=== PATIENT | female | born 1990 | race Caucasian/White ===

== ENCOUNTER 2018-08-20 03:50 | Emergency (ER) | payer OTHER ==
[~2018-08-20] VITALS: Ht 162.6 cm; Wt 55.3 kg
[2018-08-20 03:50] VITALS: BP 144/101
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
--- NOTE | 2018-08-20 03:50 | NUR ---
PATIENT [employer] [employer] TO ER CHAIR Jose Carlos
--- NOTE | 2018-08-20 04:00 | NUR ---
ER EVALUATING PT
[2018-08-20 04:05] VITALS: BP 140/100
--- NOTE | 2018-08-20 04:05 | NUR ---
Patient discharged with v/s stable. Written and verbal after care instructions given and explained. Patient verbalized understanding. Ambulatory with steady gait. All questions addressed prior to discharge. Advised to follow up with PMD. Accompanied by Chucky GARCÍA
== END 2018-08-20 04:05 ==
LOC: MED 03:50
DX: Z02.89 Encounter for other administrative examinations (principal); R03.0 Elevated blood-pressure reading, without diagnosis of hypertension; V89.2XXA Person injured in unspecified motor-vehicle accident, traffic, initial encounter; Y93.89 Activity, other specified; Y92.89 Other specified places as the place of occurrence of the external cause; Y99.8 Other external cause status
CPT/HCPCS: 99283